=== PATIENT | male | born 1945 | race Caucasian/White ===

== ENCOUNTER 2016-06-20 10:12 | Inpatient (IN) | payer OTHER, BC ==
[~2016-06-20] VITALS: Ht 167.6 cm; Wt 42.2 kg
[2016-06-20 10:58] LABS: HEMATOCRIT 39.3 % (38.0-50.0); MCH 31.2 PG (29.0-34.0); MCHC 35.4 G/DL (30.0-36.0); MCV 88.3 FL (86-99); MEAN PLAT.VOLUME 8.8 uM^3 (9.0-12.4); PLATELET COUNT 198 K/uL (156-360); RBC DIS.WIDTH-CV 14.7 % (11.8-14.6); RBC DIS.WIDTH-SD 46.7 % (39-53); RED BLOOD COUNT 4.45 M/uL (4.00-5.50); WHITE BLOOD COUNT 8.8 K/uL (4.1-10.2)
[2016-06-20 11:17] LABS: CHLORIDE 98 mEq/L (99-109); POTASSIUM 4.1 mEq/L (3.7-5.4); SODIUM 131 mEq/L (136-147)
[2016-06-20 11:19] LABS: GLUCOSE 117 mg/dL (70-99)
[2016-06-20 11:21] LABS: ANION GAP 12 MEQ/L (2-14); TOTAL BILIRUBIN 0.6 mg/dL (0.0-1.0)
[2016-06-20 11:23] LABS: ALKALINE PHOSPHATASE 100 IU/L (3-129); GFR ESTIMATE (CALCULATED) 58 mL/min/
[2016-06-20 11:24] LABS: UREA NITROGEN (BUN) 21 mg/dL (9-23)
[2016-06-20] MEDS ORDERED: eye drop RIGHT EYE (16:41)
[2016-06-20 21:06] VITALS: BP 88/57
[2016-06-21] VITALS (7 sets, daily range): BP systolic 77–100; BP diastolic 48–68
[2016-06-21 07:16] LABS: HEMATOCRIT 32.8 % (38.0-50.0); MCH 29.9 PG (29.0-34.0); MCHC 33.5 G/DL (30.0-36.0); MCV 89.1 FL (86-99); MEAN PLAT.VOLUME 8.8 uM^3 (9.0-12.4); PLATELET COUNT 139 K/uL (156-360); RBC DIS.WIDTH-CV 14.9 % (11.8-14.6); RBC DIS.WIDTH-SD 48.4 % (39-53); RED BLOOD COUNT 3.68 M/uL (4.00-5.50)
[2016-06-21 07:20] LABS: WHITE BLOOD COUNT 5.6 K/uL (4.1-10.2)
[2016-06-21 07:22] LABS: ANION GAP 6 MEQ/L (2-14); CHLORIDE 104 MEQ/L (99-109); GFR ESTIMATE (CALCULATED) > 59 mL/min/; POTASSIUM 3.7 MEQ/L (3.7-5.4); SAMPLE HEMOLYSIS CHECK 0; SAMPLE ICTERIC CHECK 0; SAMPLE LIPEMIA CHECK 0; SODIUM 136 MEQ/L (136-147); UREA NITROGEN (BUN) 15 mg/dL (9-23)
[2016-06-21 07:24] LABS: GLUCOSE 74 mg/dL (70-99)
[2016-06-22 00:03] VITALS: BP 101/58
[2016-06-22 04:43] VITALS: BP 93/68
[2016-06-22 06:52] LABS: HEMATOCRIT 33.9 % (38.0-50.0); MCH 31.1 PG (29.0-34.0); MCHC 35.1 G/DL (30.0-36.0); MCV 88.5 FL (86-99); MEAN PLAT.VOLUME 9.3 uM^3 (9.0-12.4); PLATELET COUNT 115 K/uL (156-360); RBC DIS.WIDTH-CV 14.9 % (11.8-14.6); RBC DIS.WIDTH-SD 47.8 % (39-53); RED BLOOD COUNT 3.83 M/uL (4.00-5.50)
[2016-06-22 06:54] LABS: WHITE BLOOD COUNT 9.2 K/uL (4.1-10.2)
[2016-06-22 07:01] LABS: ANION GAP 9 MEQ/L (2-14); CHLORIDE 104 MEQ/L (99-109); GFR ESTIMATE (CALCULATED) > 59 mL/min/; GLUCOSE 84 mg/dL (70-99); POTASSIUM 3.7 MEQ/L (3.7-5.4); SAMPLE HEMOLYSIS CHECK 0; SAMPLE ICTERIC CHECK 0; SAMPLE LIPEMIA CHECK 0; SODIUM 137 MEQ/L (136-147); UREA NITROGEN (BUN) 14 mg/dL (9-23)
[2016-06-22 09:35] VITALS: BP 97/42
[2016-06-22 15:00] VITALS: BP 96/56
[2016-06-22 23:10] VITALS: BP 89/63
[2016-06-23 08:08] VITALS: BP 86/40
[2016-06-23 11:52] LABS: ANION GAP 7 MEQ/L (2-14); CHLORIDE 101 MEQ/L (99-109); GFR ESTIMATE (CALCULATED) > 59 mL/min/; GLUCOSE 81 mg/dL (70-99); MAGNESIUM 1.4 mg/dl (1.3-2.7); POTASSIUM 3.6 MEQ/L (3.7-5.4); SAMPLE HEMOLYSIS CHECK 0; SAMPLE ICTERIC CHECK 0; SAMPLE LIPEMIA CHECK 0; SODIUM 135 MEQ/L (136-147); UREA NITROGEN (BUN) 20 mg/dL (9-23)
[2016-06-23 16:41] VITALS: BP 90/52
[2016-06-23 23:00] VITALS: BP 88/48
[2016-06-24 04:08] VITALS: BP 78/46
[2016-06-24 06:00] VITALS: BP 80/50
[2016-06-24 10:26] VITALS: BP 90/46
[2016-06-24 15:23] VITALS: BP 98/52
[2016-06-24 23:00] VITALS: BP 84/42
[2016-06-25 07:40] VITALS: BP 92/56
[2016-06-25 14:04] VITALS: BP 91/57
[2016-06-25 16:53] VITALS: BP 86/56
[2016-06-25 17:50] LABS: HEMATOCRIT 33.6 % (38.0-50.0); MCH 29.9 PG (29.0-34.0); MCHC 33.3 G/DL (30.0-36.0); MCV 89.8 FL (86-99); RBC DIS.WIDTH-CV 15.5 % (11.8-14.6); RBC DIS.WIDTH-SD 50.8 % (39-53); RED BLOOD COUNT 3.74 M/uL (4.00-5.50)
[2016-06-25 17:51] LABS: PLATELET COUNT 152 K/uL (156-360); WHITE BLOOD COUNT 6.3 K/uL (4.1-10.2)
[2016-06-25 18:13] LABS: ANION GAP 13 MEQ/L (2-14); CHLORIDE 103 MEQ/L (99-109); GFR ESTIMATE (CALCULATED) > 59 mL/min/; POTASSIUM 3.4 MEQ/L (3.7-5.4); SAMPLE HEMOLYSIS CHECK 0; SAMPLE ICTERIC CHECK 0; SAMPLE LIPEMIA CHECK 0; SODIUM 139 MEQ/L (136-147); UREA NITROGEN (BUN) 20 mg/dL (9-23)
[2016-06-25 18:29] LABS: GLUCOSE 51 mg/dL (70-99)
[2016-06-26 08:00] VITALS: BP 96/40
[2016-06-26 12:32] VITALS: BP 101/63
[2016-06-26 16:00] VITALS: BP 108/67
[2016-06-27] VITALS: BP 98/48
[2016-06-27 06:59] VITALS: BP 98/62
[2016-06-27 15:33] VITALS: BP 119/70
[2016-06-28] VITALS: BP 119/70
[2016-06-28 07:01] VITALS: BP 106/58
[2016-06-28 09:38] LABS: HEMATOCRIT 33.5 % (38.0-50.0); MCHC 34.6 G/DL (30.0-36.0); MCV 89.6 FL (86-99); MEAN PLAT.VOLUME 8.9 uM^3 (9.0-12.4); PLATELET COUNT 169 K/uL (156-360); RBC DIS.WIDTH-CV 15.7 % (11.8-14.6); RBC DIS.WIDTH-SD 51.3 % (39-53); RED BLOOD COUNT 3.74 M/uL (4.00-5.50)
[2016-06-28 09:39] LABS: WHITE BLOOD COUNT 3.8 K/uL (4.1-10.2)
[2016-06-28 10:08] LABS: ANION GAP 11 MEQ/L (2-14); CHLORIDE 105 MEQ/L (99-109); GFR ESTIMATE (CALCULATED) > 59 mL/min/; GLUCOSE 64 mg/dL (70-99); POTASSIUM 3.3 MEQ/L (3.7-5.4); SAMPLE HEMOLYSIS CHECK 0; SAMPLE ICTERIC CHECK 0; SAMPLE LIPEMIA CHECK 0; SODIUM 139 MEQ/L (136-147); UREA NITROGEN (BUN) 13 mg/dL (9-23)
[2016-06-28 16:00] VITALS: BP 107/62
[2016-06-28 19:30] VITALS: BP 102/56
[2016-06-28 23:04] VITALS: BP 102/56
[2016-06-29 06:55] LABS: HEMATOCRIT 30.3 % (38.0-50.0); MCH 30.2 PG (29.0-34.0); MCHC 33.7 G/DL (30.0-36.0); MCV 89.6 FL (86-99); MEAN PLAT.VOLUME 8.6 uM^3 (9.0-12.4); PLATELET COUNT 157 K/uL (156-360); RBC DIS.WIDTH-CV 16.1 % (11.8-14.6); RBC DIS.WIDTH-SD 52.7 % (39-53); RED BLOOD COUNT 3.38 M/uL (4.00-5.50)
[2016-06-29 07:17] LABS: ANION GAP 10 MEQ/L (2-14); CHLORIDE 107 MEQ/L (99-109); GFR ESTIMATE (CALCULATED) > 59 mL/min/; GLUCOSE 43 mg/dL (70-99); POTASSIUM 3.4 MEQ/L (3.7-5.4); SAMPLE HEMOLYSIS CHECK 0; SAMPLE ICTERIC CHECK 0; SAMPLE LIPEMIA CHECK 0; SODIUM 138 MEQ/L (136-147); UREA NITROGEN (BUN) 11 mg/dL (9-23)
[2016-06-29 08:00] VITALS: BP 94/38
[2016-06-29 15:44] VITALS: BP 110/58
[2016-06-29 23:43] VITALS: BP 105/50
[2016-06-30 08:11] VITALS: BP 102/52
[2016-06-30 16:00] VITALS: BP 90/44
[2016-07-01 00:22] VITALS: BP 98/62
[2016-07-01 07:40] VITALS: BP 82/40
[2016-07-01] MEDS ORDERED: PANTOPRAZOLE SO40 MG PO (11:21)
[2016-07-01 16:00] VITALS: BP 119/46
== END 2016-07-01 16:02 | DRG 392 ==
LOC: EME 10:12 → 5WEST 18:19 → EDOF 18:19 → 5WEST 21:03 → 5EAST 06-21 10:06 → 5WEST 06-21 10:06 → 5EAST 06-21 20:42
PROVIDERS: Hospitalist; Internal Medicine; Nurse Practitioner Adult Health; Specialist
PROC: 0DC58ZZ Extirpation of Matter from Esophagus, Via Natural or Artificial Opening Endoscopic (ICD-10-PCS; principal; 2016-06-21)
PROC: 0DJ08ZZ Inspection of Upper Intestinal Tract, Via Natural or Artificial Opening Endoscopic (ICD-10-PCS; principal; 2016-06-21)
PROC: 0DB48ZX Excision of Esophagogastric Junction, Via Natural or Artificial Opening Endoscopic, Diagnostic (ICD-10-PCS; principal; 2016-06-21)
PROC: 0D748ZZ Dilation of Esophagogastric Junction, Via Natural or Artificial Opening Endoscopic (ICD-10-PCS; principal; 2016-06-21)
PROC: 0DJ08ZZ Inspection of Upper Intestinal Tract, Via Natural or Artificial Opening Endoscopic (ICD-10-PCS; 2016-06-26)
PROC: 0D748ZZ Dilation of Esophagogastric Junction, Via Natural or Artificial Opening Endoscopic (ICD-10-PCS; 2016-06-26)
PROC: 0DB28ZX Excision of Middle Esophagus, Via Natural or Artificial Opening Endoscopic, Diagnostic (ICD-10-PCS; 2016-06-26)
PROC: 0DB38ZX Excision of Lower Esophagus, Via Natural or Artificial Opening Endoscopic, Diagnostic (ICD-10-PCS; 2016-06-26)
PROC: 0DH63UZ Insertion of Feeding Device into Stomach, Percutaneous Approach (ICD-10-PCS; 2016-06-28)
DX: K22.2 Esophageal obstruction (principal); K22.10 Ulcer of esophagus without bleeding; B37.81 Candidal esophagitis; E44.0 Moderate protein-calorie malnutrition; R64 Cachexia; Z68.1 Body mass index [BMI] 19.9 or less, adult; E87.1 Hypo-osmolality and hyponatremia; K22.0 Achalasia of cardia; T18.198A Other foreign object in esophagus causing other injury, initial encounter; K29.70 Gastritis, unspecified, without bleeding; I95.9 Hypotension, unspecified; E86.0 Dehydration; K44.9 Diaphragmatic hernia without obstruction or gangrene; R32 Unspecified urinary incontinence; Z87.891 Personal history of nicotine dependence
CPT/HCPCS: 71010; 71260; 74177; 74220; 80048; 80053; 81003; 83735; 84443; 85027; 88305; 88312; 94640; 99281; 99285; C9113; G0378; J0690; J1644; J2405; J3010; J3480; J7030; J7120

== ENCOUNTER → 2017-02-13 | Outpatient (CLI) | payer OTHER, BC ==
[~2017-02-13] MED LIST: PANTOPRAZOLE SO40 MG PO; eye drop RIGHT EYE
== END | disposition home or self-care (01) ==
LOC: AMB 12:39
PROC: 0DP6XUZ Removal of Feeding Device from Stomach, External Approach (ICD-10-PCS; principal; 2017-02-13)
DX: Z45.89 Encounter for adjustment and management of other implanted devices (principal); Z93.1 Gastrostomy status
CPT/HCPCS: 99212